=== PATIENT | male | born 1940 | race Caucasian/White ===

== ENCOUNTER → 2023-12-12 11:13 | Outpatient (REF) | payer OTHER, SELFPAY | LOC: RAD 11:13 | PROVIDERS: ATTENDING PHYSICIAN Nurse Practitioner Family | DX: M25.571 Pain in right ankle and joints of right foot (principal) | CPT/HCPCS: 73610 ==

== ENCOUNTER → 2023-12-19 10:45 | Outpatient (REF) | payer OTHER, SELFPAY | LOC: RAD 10:45 | PROVIDERS: ATTENDING PHYSICIAN Nurse Practitioner Family | DX: R41.3 Other amnesia (principal) | CPT/HCPCS: 70450 ==

== ENCOUNTER → 2025-03-01 06:25 | Outpatient (REF) | payer OTHER, SELFPAY | LOC: RAD 06:25 | PROVIDERS: ATTENDING PHYSICIAN Family Medicine; FAMILY PHYSICIAN Nurse Practitioner Family | DX: R42 Dizziness and giddiness (principal); R00.2 Palpitations; R55 Syncope and collapse | CPT/HCPCS: 93880 ==

== ENCOUNTER → 2025-03-05 07:45 | Outpatient (REF) | payer OTHER, SELFPAY | LOC: RCS 07:45 | PROVIDERS: ATTENDING PHYSICIAN Family Medicine; FAMILY PHYSICIAN Nurse Practitioner Family | DX: R42 Dizziness and giddiness (principal); R00.2 Palpitations; R55 Syncope and collapse | CPT/HCPCS: 93225; 93226; 93306 ==